=== PATIENT | male | born 1960 | race Caucasian/White ===

== ENCOUNTER 2017-08-19 11:26 | Emergency (ER) | payer SELFPAY ==
[~2017-08-19] VITALS: Ht 182.9 cm; Wt 132.0 kg
[~2017-08-19 11:26] MED LIST: CHOL100010 PO; DICL75TA2 PO; MULT-618 PO; NXM/40 PO; OXYC1TAB3 PO; PRLSR20 PO; SIMV20TA2 PO; TAMS0.4C38 PO; TRAM-10 PO
[2017-08-19 11:27] VITALS: TEMP 36.7; Ht 182.9 cm; Wt 132.0 kg
[2017-08-19] MEDS ORDERED: METOPROLOL TARTRATE 1 MG/ML VIAL IV STA (11:33)
[2017-08-19 11:34] VITALS: O2SAT 98
[2017-08-19 11:48] LABS: BASO % 0.3 %; BASO ABS # 0.02 K/uL (0-0.2); EOS % 3.1 %; HEMATOCRIT 48.1 % (42-52); HEMOGLOBIN 16.3 g/dL (14.0-18.0); IG# 0.02 K/uL (0.00-0.02); LYMPH % 25.5 %; LYMPH ABS # 1.65 K/uL (1.2-3.4); MEAN CELL VOLUME 81.7 fL (80-100); MEAN CORPUSCULAR HEMOGLOBIN 27.7 pg (25-34); MEAN CORPUSCULAR HGB CONC 33.9 g/dl (32-36); MEAN PLATELET VOLUME 10.7 fL (7.4-10.4); MONO % 6.3 %; MONO ABS # 0.41 K/uL (0.11-0.59); NEUT % 64.5 %; NEUT ABS # 4.18 K/uL (1.4-6.5); PLATELET COUNT 237 K/uL (130-400); RED CELL DISTRIBUTION WIDTH CV 15.6 % (11.5-14.5); RED CELL DISTRIBUTION WIDTH SD 46.8 fL (36.4-46.3); WHITE BLOOD COUNT 6.48 K/uL (4.8-10.8)
--- NOTE | 2017-08-19 11:55 | DIAGNOSTIC IMAGING REPORT ---
CHEST ONE VIEW PORTABLE CLINICAL HISTORY: Evaluate Fever/Sepsis COMPARISON STUDY: No previous studies for comparison. FINDINGS: Lung volumes are normal. There is no pneumothorax or pleural effusion. There is no evidence for pulmonary edema. Minimal left basilar opacity is suggestive of atelectasis. There is mild cardiomegaly without evidence for pulmonary edema. IMPRESSION: 1. No acute cardiopulmonary findings. 2. Mild cardiomegaly. Electronically signed by: Jn Armendariz M.D. 08/19/2017 11:54 AM Dictated Date/Time: 08/19/2017 11:53 AM
[2017-08-19 11:56] LABS: PTT PATIENT 25.7 SECONDS (21.0-31.0)
[2017-08-19] MEDS ORDERED: CHOL1000 PO (12:02)
[2017-08-19 12:04] LABS: BLOOD UREA NITROGEN 21 mg/dl (7-18); CARBON DIOXIDE 29 mmol/L (21-32); CREATININE 1.24 mg/dl (0.60-1.40); GLUCOSE 106 mg/dl (70-99); POTASSIUM 4.1 mmol/L (3.5-5.1); SODIUM 137 mmol/L (136-145)
[2017-08-19] MEDS ORDERED: ASPI325T39 PO (12:05)
[2017-08-19 12:14] LABS: CKMB 1.3 ng/ml (0.5-3.6)
--- NOTE | 2017-08-19 13:14 | EMERGENCY ROOM VISIT NOTE ---
History Report prepared by Cholo: Erica Forrest Under the Supervision of: Dr. Andres Olivo D.O. 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 He states he was walking outside and suddenly developed substernal chest pain, a fast right heart rate, arm pain and tingling, diaphoresis, jaw pain and shortness of breath. He rates his pain as a 5/10 in severity. He states he feels "hot and sweaty" currently in the ED, but his chest pain feels improved. 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 A total of 10 systems reviewed and were otherwise negative. Past Medical & Surgical Medical Problems: (1) Lumbar Disc Displacement (2) Rotator Cuff Rupture (3) Rt Bundle Branch Block (4) Unilat Inguinal Hernia (5) Unspecified Sleep Apnea Family History Hypertension Kidney disease Social History Smoking Status: Never Smoker Alcohol Use: none Drug Use: none Marital Status: Housing Status: lives with family Occupation Status: employed Current/Historical Medications Scheduled Aspirin (Aspirin Ec), 650 MG PO X1 Cholecalciferol (Vitamin D3), 2 TAB PO DAILY Diclofenac Sodium (Voltaren), 75 MG PO BID Multiple Vitamins W/ Minerals (Centrum Silver Ultra Mens), 1 TAB PO DAILY Omeprazole (Prilosec), 20 MG PO DAILY Simvastatin (Zocor), 20 MG PO QPM Tamsulosin Hcl (Flomax), 0.4 MG PO DAILY Scheduled PRN Oxycodone Ir (Roxicodone Ir), 1-2 TAB PO Q4H PRN for Severe Pain Tramadol (Ultram), 50 MG PO Q6 PRN for Pain Allergies Coded Allergies: No Known Allergies (Verified , 08/19/17) Physical Exam Vital Signs Date Time Temp Pulse Resp B/P (MAP) Pulse Ox O2 Delivery O2 Flow Rate FiO2 08/19/17 12:51 80 16 126/86 93 Nasal Cannula 2.0 08/19/17 11:53 85 16 126/86 95 Nasal Cannula 2.0 08/19/17 11:52 90 08/19/17 11:52 94 Room Air 08/19/17 11:51 175 08/19/17 11:43 96 139/93 08/19/17 11:34 98 Nasal Cannula 2.0 08/19/17 11:27 36.7 189 20 149/81 96 Physical Exam CONSTITUTIONAL/VITAL SIGNS: Reviewed / noted above. GENERAL: Non-toxic in appearance. INTEGUMENTARY: Warm, dry, and [place]. HEAD: Normocephalic. EYES: without scleral icterus or trauma. ENT/OROPHARYNX: clear and moist. LYMPHADENOPATHY/NECK: Is supple without lymphadenopathy or meningismus. RESPIRATORY: Lungs clear and equal. CARDIOVASCULAR: Tachycardic heart rate, regular rhythm. GI/ABDOMEN: Soft and nontender. No organomegaly or pulsatile mass. No rebound or guarding. Normal bowel sounds. EXTREMITIES: Warm and well perfused. BACK: No CVA tenderness. NEUROLOGICAL: Intact without focal deficits. PSYCHIATRIC: normal affect. MUSCULOSKELETAL: Normally developed with good muscle tone. Medical Decision & Procedures ER Provider Diagnostic Interpretation: Radiology results as stated below per my review and radiologist interpretation: CHEST ONE VIEW PORTABLE CLINICAL HISTORY: Evaluate Fever/Sepsis COMPARISON STUDY: No previous studies for comparison. FINDINGS: Lung volumes are normal. There is no pneumothorax or pleural effusion. There is no evidence for pulmonary edema. Minimal left basilar opacity is suggestive of atelectasis. There is mild cardiomegaly without evidence for pulmonary edema. IMPRESSION: 1. No acute cardiopulmonary findings. 2. Mild cardiomegaly. Electronically signed by: Jn Armendariz M.D. 08/19/2017 11:54 AM Laboratory Results 08/19/17 11:30 Red Blood Count 5.89, Mean Corpuscular Volume 81.7, Mean Corpuscular Hemoglobin 27.7, Mean Corpuscular Hemoglobin Concent 33.9, Mean Platelet Volume 10.7, Neutrophils (%) (Auto) 64.5, Lymphocytes (%) (Auto) 25.5, Monocytes (%) (Auto) 6.3, Eosinophils (%) (Auto) 3.1, Basophils (%) (Auto) 0.3, Neutrophils # (Auto) 4.18, Lymphocytes # (Auto) 1.65, Monocytes # (Auto) 0.41, Eosinophils # (Auto) 0.20, Basophils # (Auto) 0.02 08/19/17 11:30 Test 08/19/17 11:30 White Blood Count 6.48 K/uL (4.8-10.8) Red Blood Count 5.89 M/uL (4.7-6.1) Hemoglobin 16.3 g/dL (14.0-18.0) Hematocrit 48.1 % (42-52) Mean Corpuscular Volume 81.7 fL (80-100) Mean Corpuscular Hemoglobin 27.7 pg (25-34) Mean Corpuscular Hemoglobin Concent 33.9 g/dl (32-36) Platelet Count 237 K/uL (130-400) Mean Platelet Volume 10.7 fL (7.4-10.4) Neutrophils (%) (Auto) 64.5 % Lymphocytes (%) (Auto) 25.5 % Monocytes (%) (Auto) 6.3 % Eosinophils (%) (Auto) 3.1 % Basophils (%) (Auto) 0.3 % Neutrophils # (Auto) 4.18 K/uL (1.4-6.5) Lymphocytes # (Auto) 1.65 K/uL (1.2-3.4) Monocytes # (Auto) 0.41 K/uL (0.11-0.59) Eosinophils # (Auto) 0.20 K/uL (0-0.5) Basophils # (Auto) 0.02 K/uL (0-0.2) RDW Standard Deviation 46.8 fL (36.4-46.3) RDW Coefficient of Variation 15.6 % (11.5-14.5) Immature Granulocyte % (Auto) 0.3 % Immature Granulocyte # (Auto) 0.02 K/uL (0.00-0.02) Prothrombin Time 10.5 SECONDS (9.0-12.0) Prothromb Time International Ratio 1.0 (0.9-1.1) Activated Partial Thromboplast Time 25.7 SECONDS (21.0-31.0) Partial Thromboplastin Ratio 1.0 Anion Gap 5.0 mmol/L (3-11) Est Creatinine Clear Calc Drug Dose 92.4 ml/min Estimated GFR () 74.3 Estimated GFR (Non- 64.1 BUN/Creatinine Ratio 17.1 (10-20) Calcium Level 9.0 mg/dl (8.5-10.1) Total Creatine Kinase 156 U/L (39-308) Creatine Kinase MB 1.3 ng/ml (0.5-3.6) Creatine Kinase MB Ratio 0.8 (0-3.0) Troponin I < 0.015 ng/ml (0-0.045) Thyroid Stimulating Hormone (TSH) 1.310 uIu/ml (0.300-4.500) Laboratory results as stated above per my review. Medications Administered Medications (Trade) Dose Ordered Sig/Rudy Route Start Time Stop Time Status Last Admin Dose Admin Metoprolol Tartrate (Lopressor Iv) 5 mg NOW STAT IV 08/19/17 11:33 08/19/17 11:34 DC 08/19/17 11:43 5 MG ECG Per My Interpretation Indication: chest pain Rate (beats per minute): 170 Rhythm: SVT Findings: no ectopy, other (no ST elevations) Change: Patient's electrocardiogram interpreted by me. 2nd EKG on 08/19/17: Normal sinus rhythm, rate of 98, no ST elevations or depressions, no ectopy ED Course 1130: Previous medical records were reviewed. The patient was evaluated in room A11. A complete history and physical examination was performed. 1133: Lopressor 5 mg IV. 1220: I reevaluated the patient. He is resting comfortably. 1315: I reevaluated the patient. He is feeling well and resting comfortably. I discussed his results and discharge instructions and he verbalized complete understanding and agreement. Medical Decision the differential was considered includes acute myocardial infarction, acute coronary syndrome, myocarditis, pericarditis, pericardial effusions /tamponade, esophageal perforation, thoracic aortic dissection, pulmonary embolism, pneumonia, pneumothorax, pancreatitis, shingles, acute cholecystitis, perforated abdominal viscus. This is a 57-year-old male who presents to the ED with a chief complaint of palpitations and lightheadedness. The patient states that his symptoms started about 30 minutes prior to his arrival. The patient reports that his right arm and jaw were also bothering him. His initial evaluation revealed vital signs with a heart rate of 189. The patient's initial EKG revealed SVT. There is no ischemic changes. His blood work revealed normal CBC, complete metabolic panel and troponin. During the patient's initial evaluation, the patient spontaneously converted to a normal sinus rhythm. There is no ischemic changes on that EKG. The patient was told the results of this test. He was given 5 mg of IV Lopressor during his ED stay. Vital signs were normal at the time of disposition. Medication Reconcilliation Current Medication List: was personally reviewed by me Blood Pressure Screening Patient's blood pressure: Normal blood pressure Blood pressure disposition: Did not require urgent referral Impression Primary Impression: SVT (supraventricular tachycardia) Scribe Attestation The scribe's documentation has been prepared under my direction and personally reviewed by me in its entirety. I confirm that the note above accurately reflects all work, treatment, procedures, and medical decision making performed by me. Departure Information Dispostion Home / Self-Care Referrals Salvador Jordan M.D. (PCP) Brennen Patrick M.D. Patient Instructions My [facility], Treatment for Supraventricular Tachycardia SVT, Understanding Supraventricular Tachycardia SVT Additional Instructions Follow-up with Dr. Patrick from cardiology. Call on Monday for an appointment. Return for recurrence or new concerns.
[2017-08-19 13:29] VITALS: BP 117/89; PULSE 81; O2SAT 96
== END 2017-08-19 14:00 | disposition home or self-care (01) ==
LOC: C.EDB 11:27 → C.EDA 14:00
DX: I47.1 Supraventricular tachycardia (principal); Z79.82 Long term (current) use of aspirin; Z82.49 Family history of ischemic heart disease and other diseases of the circulatory system; Z84.1 Family history of disorders of kidney and ureter

== ENCOUNTER 2018-09-23 15:39 | Inpatient (IN) ==
[2018-09-23] MEDS ORDERED: ALBUT/IPRATROP 3MG/0.5MG NEB 3 ML VIAL ONE (15:55)
--- NOTE | 2018-09-23 16:10 | XRay Report ---
XR chest 1V portable CLINICAL HISTORY: SOB, popping L anterior chest COMPARISON STUDY: Chest radiograph September 17, 2018. Chest CT September 18, 2018. FINDINGS: Lung volumes are normal. There is no pneumothorax or pleural effusion. Cardiomegaly is agai n noted. Mediastinal contours are stable. No evidence for pulmonary edema. Appearance of the chest is unchanged. IMPRESSION: No acute cardiopulmonary findings. No change in appearance of the chest. Electronically signed by: Jn Armendariz M.D. 09/23/2018 4:09 PM
[2018-09-23] MEDS ORDERED: methylPREDNISolone 125 MG/2 ML VIAL IV STA (16:14)
[2018-09-23] MEDS ORDERED: ALBUT/IPRATROP 3MG/0.5MG NEB 3 ML VIAL NEB STA ×3 (16:14→19:00)
[2018-09-23 16:39] LABS: Basophils # (auto) 0.05 K/uL (0-0.2); Basophils % (auto) 0.4 %; Eosinophils # (auto) 1.95 K/uL (0-0.5); Eosinophils % (auto) 15.9 %; Hematocrit (blood only) 47.1 % (42-52); Hemoglobin 15.8 g/dL (14.0-18.0); Immature Granulocytes # (auto) 0.03 K/uL (0.00-0.02); Immature Granulocytes % (auto) 0.2 %; Lymphocytes # (auto) 1.76 K/uL (1.2-3.4); Lymphocytes % (auto) 14.3 %; Mean Corpuscular Hgb Conc 33.5 g/dL (32-36); Mean Corpuscular Volume 80.9 fL (80-100); Mean Platelet Volume 10.5 fL (7.4-10.4); Monocytes # (auto) 0.84 K/uL (0.11-0.59); Monocytes % (auto) 6.8 %; Neutrophils # (auto) 7.67 K/uL (1.4-6.5); Neutrophils % (auto) 62.4 %; Platelet Count 306 K/uL (130-400); RDW Coefficient of Variation 15.8 % (11.5-14.5); RDW Standard Deviation 47.3 fL (36.4-46.3); Red Blood Count 5.82 M/uL (4.7-6.1)
[2018-09-23 16:54] LABS: Alanine Aminotransferase 35 U/L (12-78); Albumin Level 3.7 gm/dl (3.4-5.0); Aspartate Aminotransferase 23 U/L (15-37); BUN Creatinine Ratio 13.2 (10-20); Bilirubin Direct 0.1 mg/dl (0-0.2); Blood Urea Nitrogen 14 mg/dl (7-18); Carbon Dioxide 27 mmol/L (21-32); Chloride 104 mmol/L (98-107); Est GFR (African American) 88.2; Est GFR (Non-African American) 76.1; Glucose 88 mg/dl (70-99); Potassium 3.8 mmol/L (3.5-5.1); Sodium 140 mmol/L (136-145)
[2018-09-23 16:59] LABS: Alkaline Phosphatase 90 U/L (45-117); Bilirubin,Total 0.5 mg/dl (0.2-1); NT Pro B Type Natriuretic Pept 12 pg/ml (0-900); Total Protein 8.3 gm/dl (6.4-8.2); Troponin I < 0.015 ng/ml (0-0.045)
[2018-09-23 17:05] LABS: Influenza A virus by PCR Neg for Influ A (Neg); Influenza B virus by PCR Neg for Influ B (Neg)
[2018-09-23 17:12] LABS: Base Excess VBG 1.4 mEq/L; Oxygen Saturation VBG 68.7 %; pH VBG 7.35 (7.36-7.41)
--- NOTE | 2018-09-23 18:17 | Ultrasound Report ---
RIGHT LOWER EXTREMITY VENOUS DOPPLER CLINICAL HISTORY: Shortness of breath. Chest pain. COMPARISON STUDY: No previous studies for comparison. TECHNIQUE: Sonography of the deep venous system of the right lower extremity was performed. Compress ion and augmentation were evaluated. FINDINGS: The right common femoral, superficial femoral and popliteal veins were compressible. Augme ntation was normal. Flow was shown within the deep calf vessels. IMPRESSION: No evidence of deep venous thrombus within the right lower extremity. Electronically signed by: Jn Armendariz M.D. 09/23/2018 6:16 PM
[2018-09-23] MEDS ORDERED: OPTIRAY 320 125ml IV PRN (18:51)
[2018-09-23] MEDS ORDERED: LORazepam 1 MG/2 ML VIAL IV STA (19:03)
[2018-09-23] MEDS ORDERED: HYDROCODONE/HOMATROPINE SYRUP 5MG/1.5MG 5ML UDP PO STA (19:03)
[2018-09-23] MEDS ORDERED: LORazepam 2 MG/4 ML VIAL ONE (19:03)
--- NOTE | 2018-09-23 19:15 | CT Scan Report ---
CT ANGIOGRAPHY OF THE CHEST, PULMONARY EMBOLUS PROTOCOL CLINICAL HISTORY: Severe shortness of breath. Evaluate for pulmonary embolus. COMPARISON STUDY: Chest CT September 18, 2018. Chest radiograph performed earlier today. TECHNIQUE: Following IV administration of 120 mL of Optiray-320, helical axial images of the chest we re obtained utilizing the pulmonary embolus protocol. Maximal intensity projections and sagittal and coronal reformats were viewed on an independent 3D workstation. IV contrast was administered withou t complication. Automated exposure control was utilized for the study. A dose lowering technique wa s utilized adhering to the principles of ALARA. CT DOSE: 680.21 mGy.cm FINDINGS: No pulmonary emboli are identified although the lobar, segmental and subsegmental pulmonar y arteries are suboptimally assessed due to respiratory motion. There is no pneumothorax or pleural e ffusion. There is no consolidation to suggest pneumonia. Minimal secretions within the distal trachea are noted. Note is made of mildly displaced fractures of the anterior left sixth and seventh costoch ondral junctions. A small amount of adjacent fluid is noted. There is no pneumothorax. Fatty infiltra tion of the liver is noted. IMPRESSION: 1. Mildly displaced fractures of the anterior left sixth and seventh costochondral junctions with sma ll amount of adjacent fluid. This accounts for the patient's pain. No pneumothorax. 2. No central pulmonary emboli identified. Remainder of the arteries suboptimally assessed due to res piratory motion. Electronically signed by: Jn Armendariz M.D. 09/23/2018 7:13 PM
--- NOTE | 2018-09-23 21:07 | History & Physical Report ---
Date of Service September 23, 2018 Assessment & Plan (1) Hypoxia: O2 sats as low as 88% in ED, even after O2 administered. CTA chest negative for pulmonary embolism; no infiltrates or effusions noted. Hypoxia probably secondary to sinobronchitis with associated bronchospasm. Rx bronchospasm with IV methylprednisolone and nebs. No history of COPD or asthma. Consider PFT's once acute symptoms have resolved. (2) Cough: Persistent cough x 3 weeks as outlined in HPI. Daughter's boyfriend had similar symptoms. Has received 2 courses of antibiotics as well as steroid taper. Associated sinus symptoms. No pulmonary infiltrates on chest x-ray or CTA chest. Check sinus films. No clear need for additional antibiotics at this time. Management of bronchospasm with IV steroids + nebs. Anti-tussives PRN. EMPLOYMENT COORDINATOR swab for influenza neg. Check EMPLOYMENT COORDINATOR swab for Pertussis. (3) Sleep apnea, obstructive: Continue CPAP. (4) Rib fractures: Fractures of left 6th and 7th ribs noted on CTA chest. Rib fractures secondary to coughing. Analgesics PRN. Incentive spirometry. Check vitamin D levels. (5) Prolonged QT interval: QTc 503 msec. Avoid QT-prolonging meds if possible. (6) Diarrhea: Patient reports frequent loose stools- at least 3 today. Has been on 2 recent courses of antibiotics. Check stool for C diff. (7) Hematochezia: Intermittent rectal bleeding which patient attributes to hemorrhoids. Last colonoscopy was 3 years ago- polyp, diverticulosis, internal hemorrhoids. Check stools for C diff. Repeat colonoscopy recommended in 5 yrs; may need f/u colonoscopy sooner if hematochezia persists. (8) GERD (gastroesophageal reflux disease): Continue PPI. (9) Benign prostatic hyperplasia: Continue tamsulosin. (10) DVT prophylaxis: Not indicated- very low risk < 1.5%) of VTE per IMPROVE model. Ambulate. (11) Discharge planning issues: Anticipated discharge to home. Family Medicine follow-up with Dr. Jordan. History of Present Illness Chief Complaint: cough, SOB, chest pain Primary Care Provider: Salvador Jordan 58-year-old male followed by Dr. Jordan. He enjoys relatively good health. History of sleep apnea, no other diagnosed pulmonary disease. About 3 weeks prior to admission he developed a cough. His daughter's boyfriend had similar symptoms and had to be hospitalized for several days. Cough became productive of yellow-green sputum. He was seen in the ED on 08/27/18. Chest x-ray did not show any infiltrates. He was thought to have bronchitis and was prescribed azithromycin and prednisone. Continue to have intermittent coughing. Temperature at home was as high as 102. Had at least one episode of nausea and vomiting. Developed left anterior chest wall pain after feeling a pop in his ribs after a coughing spell. Noted sinus congestion and postnasal drainage. Seen in clinic on 09/13/18 and prescribed amoxicillin/clavulanic acid, methylprednisolone taper, and nebulizer treatments with albuterol and ipratropium. He completed his course of methylprednisolone several days ago and his amoxicillin/clavulanic acid yesterday. Sinus symptoms have improved. Still experiencing wheezing, shortness of breath, and severe paroxysms of coughing. Nebulizer treatments offered temporary relief of wheezing and dyspnea. Using [id number] cough medications PRN. Cough still productive of thick green sputum. Ongoing severe left anterior chest wall pain; no anginal symptoms. Using diclofenac and ibuprofen chest wall pain without much benefit. Having frequent loose stools; has had intermittent rectal bleeding which he attributes to hemorrhoids. Came to the ED for evaluation. Oxygen saturations as low as 88%. BiPAP utilized for ventilatory support. Allergies Allergy/AdvReac Type Severity Reaction Status Date / Time No Known Allergies Allergy Unknown Verified 09/18/18 00:27 Home Medications Home Medications Medication Instructions Recorded Confirmed Type albuterol sulfate 2 puff INHALATION Q4 PRN 08/27/18 09/23/18 History diclofenac sodium 75 mg PO BID 08/27/18 09/23/18 History omeprazole 20 mg PO DAILY 08/27/18 09/23/18 History simvastatin 20 mg PO HS 08/27/18 09/23/18 History benzonatate 200 mg PO TID #30 cap 09/18/18 09/23/18 Rx aspirin 81 mg PO DAILY 09/23/18 09/23/18 History cholecalciferol (vitamin D3) 2,000 unit PO DAILY 09/23/18 09/23/18 History [Vitamin D3] dextromethorphan-guaifenesin 2 tab PO Q12H PRN 09/23/18 09/23/18 History [Mucinex DM] ipratropium-albuterol 3 ml INHALATION QID PRN 09/23/18 09/23/18 History tamsulosin 0.4 mg PO DAILY 09/23/18 09/23/18 History Past Med/Surg History Medical History Chronic back pain (Chronic) GERD (gastroesophageal reflux disease) (Chronic) Benign prostatic hyperplasia (Chronic) CPAP use counseling (Chronic) HLD (hyperlipidemia) (Chronic) Surgical History Status post tonsillectomy (Chronic) Status post hernia repair (Chronic) Status post cholecystectomy (Chronic) Status post appendectomy (Chronic) Family History Mother Stroke Coronary heart disease Father Kidney disease Sister Colorectal cancer Brother Colorectal cancer Brother Pancreatic cancer Brother Prostate cancer Social History Preferred Language: Hungarian Communication Ability: Effective 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 Beliefs That Will Affect Care: Restorationism Current Living Situation: Spouse Other Information That Helps Us Care for You: No Feels Safe at Home: Yes Safety Concerns: Feels Safe At This Time Smoking Status: Never smoker Hx Alcohol Use: Yes Hx Substance Use: No Review of Systems Constitutional: + fever and + weight loss (during recent illness) Eyes: no diplopia and no worsening vision Ear, Nose, Mouth, Throat: as per Subjective / HPI Respiratory: as per Subjective / HPI Gastrointestinal: + nausea, + vomiting, + diarrhea/loose stools and + blood in stools; no constipation and no melena Genitourinary (Male): + nocturia; no dysuria and no hematuria Musculoskeletal: + joint pain (chronic back pain); no myalgia Integumentary: no rash and no new lesions Neurologic: no headache(s) Endocrine: + polydipsia Hematologic / Lymphatic: no easy bleeding, no easy bruising and no lymphadenopathy Physical Exam Vital Signs (Past 24 Hours): Last Vital Signs Temp 36.8 C 09/23/18 15:41 Pulse 112 H 09/23/18 21:01 Resp 21 09/23/18 21:01 BP 124/98 09/23/18 21:00 Pulse Ox 92 09/23/18 21:01 Constitutional: WD/WN, vitals as above no acute distress (appears very uncomfortable when coughing) Eyes: PERRL, conjunctivae normal, anicteric sclerae ENMT: external ear and nose normal, oropharynx normal Neck: trachea midline, no thyromegaly Respiratory: no respiratory distress Auscultation: + wheezes (diffuse, moderate) Cardiovascular: Rate/Rhythm: regular rate Heart Sounds: no gallop, no murmur and no cardiac rub Vessels: no JVD Extremities: normal capillary refill and + edema (trace pretibial); no calf tenderness Chest (Breasts): Additional Comments: left anterior chest wall tenderness Gastrointestinal (Abdomen): normal bowel sounds, soft, nontender, no hepatosplenomegaly Musculoskeletal: Head/Neck/Chest: neck supple Extremities: strength 5/5 throughout; no cyanosis and no clubbing Skin: no rashes, warm and dry Neurologic: PERRL, EOMI no facial palsy no dysarthria or aphasia patellar DTR's 1/2 bilat Psychiatric: Orientation: alert and oriented x 3 Affect: euthymic affect Lymphatic: no cervical lymphadenopathy Results & Data Laboratory Results Laboratory Results - last 24 hr 09/23/18 09/23/18 09/23/18 15:51 15:51 16:26 WBC 12.30 H RBC 5.82 Hgb 15.8 Hct 47.1 MCV 80.9 MCH 27.1 MCHC 33.5 RDW Std Deviation 47.3 H RDW Coeff of Kristi 15.8 H Plt Count 306 MPV 10.5 H Immature Gran % (Auto) 0.2 Neut % (Auto) 62.4 Lymph % (Auto) 14.3 [place] % (Auto) 6.8 Eos % (Auto) 15.9 Baso % (Auto) 0.4 Immature Gran # (Auto) 0.03 H Neut # (Auto) 7.67 H Lymph # (Auto) 1.76 [place] # (Auto) 0.84 H Eos # (Auto) 1.95 H Baso # (Auto) 0.05 VBG pH VBG pCO2 VBG pO2 VBG HCO3 VBG O2 Saturation VBG Base Excess Carboxyhemoglobin Barometric Pressure Sodium 140 Potassium 3.8 Chloride 104 Carbon Dioxide 27 Anion Gap 9.0 BUN 14 Creatinine 1.07 Est Cr Clr Drug Dosing Not Reportable Est GFR ( Amer) 88.2 Est GFR (Non-Af Amer) 76.1 BUN/Creatinine Ratio 13.2 Glucose 88 Lactate Calcium 9.0 Total Bilirubin 0.5 Direct Bilirubin 0.1 AST 23 ALT 35 Alkaline Phosphatase 90 Troponin I < 0.015 NT-Pro-B Natriuret Pep 12 Total Protein 8.3 H Albumin 3.7 Lipase 91 Influenza Type A (PCR) Neg for Influ A Influenza Type B (PCR) Neg for Influ B 09/23/18 09/23/18 09/23/18 16:42 16:42 16:42 WBC RBC Hgb Hct MCV MCH MCHC RDW Std Deviation RDW Coeff of Kristi Plt Count MPV Immature Gran % (Auto) Neut % (Auto) Lymph % (Auto) [place] % (Auto) Eos % (Auto) Baso % (Auto) Immature Gran # (Auto) Neut # (Auto) Lymph # (Auto) [place] # (Auto) Eos # (Auto) Baso # (Auto) VBG pH 7.35 L VBG pCO2 52 H VBG pO2 37 VBG HCO3 28 VBG O2 Saturation 68.7 VBG Base Excess 1.4 Carboxyhemoglobin 0.0 Barometric Pressure 730.2 Sodium Potassium Chloride Carbon Dioxide Anion Gap BUN Creatinine Est Cr Clr Drug Dosing Est GFR ( Amer) Est GFR (Non-Af Amer) BUN/Creatinine Ratio Glucose Lactate 1.0 Calcium Total Bilirubin Direct Bilirubin AST ALT Alkaline Phosphatase Troponin I NT-Pro-B Natriuret Pep Total Protein Albumin Lipase Influenza Type A (PCR) Influenza Type B (PCR) Diagnostic Findings PORT CHEST X-RAY IMPRESSION: No acute cardiopulmonary findings. No change in appearance of the chest. Electronically signed by: Jn Armendariz M.D. 09/23/2018 4:09 PM CTA CHEST FINDINGS: No pulmonary emboli are identified although the lobar, segmental and subsegmental pulmonary arteries are suboptimally assessed due to respiratory motion. There is no pneumothorax or pleural effusion. There is no consolidation to suggest pneumonia. Minimal secretions within the distal trachea are noted. Note is made of mildly displaced fractures of the anterior left sixth and seventh costochondral junctions. A small amount of adjacent fluid is noted. There is no pneumothorax. Fatty infiltration of the liver is noted. IMPRESSION: 1. Mildly displaced fractures of the anterior left sixth and seventh costochondral junctions with small amount of adjacent fluid. This accounts for the patient's pain. No pneumothorax. 2. No central pulmonary emboli identified. Remainder of the arteries suboptimally assessed due to respiratory motion. Electronically signed by: Jn Armendariz M.D. 09/23/2018 7:13 PM VENOUS DUPLEX RIGHT LOWER EXTREMITY IMPRESSION: No evidence of deep venous thrombus within the right lower extremity. Electronically signed by: Jn Armendariz M.D. 09/23/2018 6:16 PM ECG Additional Comments: EKG performed at [address] at 110 / min, QTc 503 msec, no acute ST or T-wave changes. Code Status & VTE Plan Code Status full code VTE Prophylaxis Plan VTE Prophylaxis will be ordered: No Reason for no VTE drug order: Treatment not indicated Reason for no VTE mechanical prophylaxis: Treatment not tolerated
[2018-09-23] MEDS ORDERED: HYDROCODONE/HOMATROPINE SYRUP 5MG/1.5MG 5ML UDP PO PRN (22:02)
[2018-09-23] MEDS ORDERED: ACETAMINOPHEN 500 MG TAB PO PRN (22:03)
[2018-09-23] MEDS ORDERED: TRAMADOL HCL 50 MG TABLET PO PRN (22:04)
[2018-09-23] MEDS: DICLOFENAC SODIUM 75 MG TABCR PO SCH (23:33)
[2018-09-23] MEDS: BENZONATATE 100 MG CAPSULE PO PRN (23:34)
--- NOTE | 2018-09-24 00:15 | Emergency Department Note ---
Entered by Mike Samaniego acting as a scribe for Peter Morrison History of Present Illness General Chief complaint: Chest Pain Stated complaint: CAN'T BREATH, CHEST PAIN Time Seen by Provider: 09/23/18 16:04 Source: patient Mode of arrival: ambulatory History of Present Illness Provider complaint: Chest Pain Onset (ago): week(s) 3 Location: chest Pain Consistency: + constant Maximum Pain Intensity: 10 Current Pain Intensity: 10 Quality: + other (Chest Pain ) Associated symptoms: + cough; no nausea/vomiting Treatments prior to arrival: other ( albuterol) Patient is a 58 year old male who presents himself to the ER with complains of chest pain beginning three weeks ago. Patient states about 10 days ago he noticed something popping in his chest. That day he came into the ER around midnight and was told he had torn a muscle and said the pain was unbelievably painful. After the patient was discharged he went to see a doctor and was given antibiotics and steroids. Patient then reports seeing who gave him amoxicillin and albuterol. Patient state he ran out of some of his medication and has been coughing immensely for last two to three days. He is in the ER today regarding his chest pain again. He notes his pain to be specifically in the center of the chest. He rates his constant pain at a value of 7 on the pain intensity scale. He states he was up all night and took albuterol medication to relieve his symptoms, but it did not provide him relief. Patient also notes having pain radiating to the inside of his knee. Patient denies nausea and vomiting. Home Medications Home Medications Medication Instructions Recorded Confirmed Type albuterol sulfate 2 puff INHALATION Q4 PRN 08/27/18 09/23/18 History diclofenac sodium 75 mg PO BID 08/27/18 09/23/18 History omeprazole 20 mg PO DAILY 08/27/18 09/23/18 History simvastatin 20 mg PO HS 08/27/18 09/23/18 History benzonatate 200 mg PO TID #30 cap 09/18/18 09/23/18 Rx aspirin 81 mg PO DAILY 09/23/18 09/23/18 History cholecalciferol (vitamin D3) 2,000 unit PO DAILY 09/23/18 09/23/18 History [Vitamin D3] dextromethorphan-guaifenesin 2 tab PO Q12H PRN 09/23/18 09/23/18 History [Mucinex DM] ipratropium-albuterol 3 ml INHALATION QID PRN 09/23/18 09/23/18 History tamsulosin 0.4 mg PO DAILY 09/23/18 09/23/18 History Allergies Allergy/AdvReac Type Severity Reaction Status Date / Time No Known Allergies Allergy Unknown Verified 09/18/18 00:27 Past Med/Surg History Medical History Chronic back pain (Chronic) GERD (gastroesophageal reflux disease) (Chronic) Benign prostatic hyperplasia (Chronic) CPAP use counseling (Chronic) HLD (hyperlipidemia) (Chronic) Surgical History Status post tonsillectomy (Chronic) Status post hernia repair (Chronic) Status post cholecystectomy (Chronic) Status post appendectomy (Chronic) Family History Mother Stroke Coronary heart disease Father Kidney disease Sister Colorectal cancer Brother Colorectal cancer Brother Pancreatic cancer Brother Prostate cancer Social History Preferred Language: Nepali Communication Ability: Effective Keyboard Specialist Required: No Beliefs That Will Affect Care: Jewish Current Living Situation: Spouse Other Information That Helps Us Care for You: No Feels Safe at Home: Yes Safety Concerns: Feels Safe At This Time Smoking Status: Never smoker Hx Alcohol Use: Yes Hx Substance Use: No Review of Systems See HPI for pertinent positives & negatives. and A total of 10 systems reviewed and were otherwise negative Physical Exam Vital Signs Vital Signs - 24 hr 09/23/18 15:41 09/23/18 15:49 09/23/18 15:51 Temperature 36.8 C Temperature Source Oral Sepsis Recent Fever Within 48 Hours No Sepsis Action Taken by Nursing No Action Required Pulse Rate 114 H 102 H Pulse Rate [Finger] 102 H Pulse Rate from SpO2 Sensor 103 H Pulse Rhythm [Finger] Pulse Strength [Finger] Respiratory Rate 28 H 27 H 24 Respiratory Effort / Characteristics Spontaneous Labored Respiratory Depth Normal Respiratory Pattern Blood Pressure 188/99 H 165/97 H Blood Pressure [Right Arm] 165/97 H Blood Pressure Mean 128 119 Blood Pressure Mean [Right Arm] 119 Blood Pressure Position [Right Arm] Pulse Oximetry 88 L 96 93 Oxygen Delivery Method Nasal Cannula Oxygen Flow Rate 2 Fraction of Inspired Oxygen 09/23/18 15:53 09/23/18 16:00 09/23/18 16:01 Temperature Temperature Source Sepsis Recent Fever Within 48 Hours Sepsis Action Taken by Nursing Pulse Rate 102 H 100 H 101 H Pulse Rate [Finger] Pulse Rate from SpO2 Sensor 102 H 100 H 101 H Pulse Rhythm [Finger] Pulse Strength [Finger] Respiratory Rate 21 26 H 37 H Respiratory Effort / Characteristics Respiratory Depth Respiratory Pattern Blood Pressure 145/88 H Blood Pressure [Right Arm] Blood Pressure Mean 107 Blood Pressure Mean [Right Arm] Blood Pressure Position [Right Arm] Pulse Oximetry 93 97 97 Oxygen Delivery Method Oxygen Flow Rate Fraction of Inspired Oxygen 09/23/18 16:30 09/23/18 16:31 09/23/18 17:00 Temperature Temperature Source Sepsis Recent Fever Within 48 Hours Sepsis Action Taken by Nursing Pulse Rate 97 H 99 H 110 H Pulse Rate [Finger] Pulse Rate from SpO2 Sensor 98 H 100 H 110 H Pulse Rhythm [Finger] Pulse Strength [Finger] Respiratory Rate 28 H 27 H 29 H Respiratory Effort / Characteristics Respiratory Depth Respiratory Pattern Blood Pressure 157/74 H 172/98 H Blood Pressure [Right Arm] Blood Pressure Mean 101 122 Blood Pressure Mean [Right Arm] Blood Pressure Position [Right Arm] Pulse Oximetry 97 96 92 Oxygen Delivery Method Oxygen Flow Rate Fraction of Inspired Oxygen 09/23/18 17:35 09/23/18 17:36 09/23/18 18:27 Temperature Temperature Source Sepsis Recent Fever Within 48 Hours Sepsis Action Taken by Nursing Pulse Rate 120 H 115 H 111 H Pulse Rate [Finger] Pulse Rate from SpO2 Sensor 119 H 114 H Pulse Rhythm [Finger] Pulse Strength [Finger] Respiratory Rate 18 27 H 10 L Respiratory Effort / Characteristics Respiratory Depth Respiratory Pattern Blood Pressure 154/94 H Blood Pressure [Right Arm] Blood Pressure Mean 114 Blood Pressure Mean [Right Arm] Blood Pressure Position [Right Arm] Pulse Oximetry 91 93 Oxygen Delivery Method Oxygen Flow Rate Fraction of Inspired Oxygen 09/23/18 18:29 09/23/18 18:30 09/23/18 18:31 Temperature Temperature Source Sepsis Recent Fever Within 48 Hours Sepsis Action Taken by Nursing Pulse Rate 111 H 112 H Pulse Rate [Finger] 111 H Pulse Rate from SpO2 Sensor 111 H 111 H Pulse Rhythm [Finger] Regular Pulse Strength [Finger] Normal Respiratory Rate 30 H 28 H 31 H Respiratory Effort / Characteristics Spontaneous Accessory Muscle Use Labored Retracting Short of Breath Respiratory Depth Deep Respiratory Pattern Tachypnea Blood Pressure 150/90 H Blood Pressure [Right Arm] 150/90 H Blood Pressure Mean 110 Blood Pressure Mean [Right Arm] 110 Blood Pressure Position [Right Arm] Sitting Pulse Oximetry 88 L 89 L 90 Oxygen Delivery Method Nasal Cannula Oxygen Flow Rate 3 Fraction of Inspired Oxygen 09/23/18 18:36 09/23/18 19:00 09/23/18 19:03 Temperature Temperature Source Sepsis Recent Fever Within 48 Hours Sepsis Action Taken by Nursing Pulse Rate 121 H 133 H Pulse Rate [Finger] Pulse Rate from SpO2 Sensor 131 H Pulse Rhythm [Finger] Pulse Strength [Finger] Respiratory Rate 24 33 H Respiratory Effort / Characteristics Respiratory Depth Respiratory Pattern Blood Pressure 153/93 H Blood Pressure [Right Arm] Blood Pressure Mean 113 Blood Pressure Mean [Right Arm] Blood Pressure Position [Right Arm] Pulse Oximetry 88 L 93 Oxygen Delivery Method Nasal Cannula Oxygen Flow Rate 3 Fraction of Inspired Oxygen 09/23/18 19:06 09/23/18 19:23 09/23/18 19:30 Temperature Temperature Source Sepsis Recent Fever Within 48 Hours Sepsis Action Taken by Nursing Pulse Rate 120 H 117 H Pulse Rate [Finger] 118 H Pulse Rate from SpO2 Sensor 122 H Pulse Rhythm [Finger] Pulse Strength [Finger] Respiratory Rate 22 25 H 25 H Respiratory Effort / Characteristics Non-Labored Spontaneous Spontaneous Respiratory Depth Respiratory Pattern Blood Pressure 133/90 Blood Pressure [Right Arm] Blood Pressure Mean 104 Blood Pressure Mean [Right Arm] Blood Pressure Position [Right Arm] Pulse Oximetry 90 95 93 Oxygen Delivery Method Nasal Cannula Oxygen Flow Rate 6 Fraction of Inspired Oxygen 50 09/23/18 19:31 09/23/18 19:58 09/23/18 20:00 Temperature Temperature Source Sepsis Recent Fever Within 48 Hours Sepsis Action Taken by Nursing Pulse Rate 117 H 113 H 109 H Pulse Rate [Finger] Pulse Rate from SpO2 Sensor 117 H 114 H 110 H Pulse Rhythm [Finger] Pulse Strength [Finger] Respiratory Rate 20 29 H 20 Respiratory Effort / Characteristics Respiratory Depth Respiratory Pattern Blood Pressure 133/90 164/88 H Blood Pressure [Right Arm] Blood Pressure Mean 104 113 Blood Pressure Mean [Right Arm] Blood Pressure Position [Right Arm] Pulse Oximetry 96 97 95 Oxygen Delivery Method BiPAP BiPAP Oxygen Flow Rate Fraction of Inspired Oxygen 09/23/18 20:01 09/23/18 20:30 09/23/18 20:31 Temperature Temperature Source Sepsis Recent Fever Within 48 Hours Sepsis Action Taken by Nursing Pulse Rate 110 H 110 H 111 H Pulse Rate [Finger] Pulse Rate from SpO2 Sensor 111 H 107 H 109 H Pulse Rhythm [Finger] Pulse Strength [Finger] Respiratory Rate 26 H 25 H 22 Respiratory Effort / Characteristics Respiratory Depth Respiratory Pattern Blood Pressure 131/85 Blood Pressure [Right Arm] Blood Pressure Mean 100 Blood Pressure Mean [Right Arm] Blood Pressure Position [Right Arm] Pulse Oximetry 96 92 97 Oxygen Delivery Method BiPAP Oxygen Flow Rate Fraction of Inspired Oxygen 09/23/18 20:32 09/23/18 21:00 09/23/18 21:01 Temperature Temperature Source Sepsis Recent Fever Within 48 Hours Sepsis Action Taken by Nursing Pulse Rate 112 H 113 H 112 H Pulse Rate [Finger] Pulse Rate from SpO2 Sensor 111 H 113 H 112 H Pulse Rhythm [Finger] Pulse Strength [Finger] Respiratory Rate 25 H 18 21 Respiratory Effort / Characteristics Respiratory Depth Respiratory Pattern Blood Pressure 124/98 Blood Pressure [Right Arm] Blood Pressure Mean 106 Blood Pressure Mean [Right Arm] Blood Pressure Position [Right Arm] Pulse Oximetry 97 91 92 Oxygen Delivery Method Oxygen Flow Rate Fraction of Inspired Oxygen 09/23/18 22:15 09/23/18 22:42 09/23/18 23:52 Temperature 36.3 C L 36.3 C L Temperature Source Oral Oral Sepsis Recent Fever Within 48 Hours Sepsis Action Taken by Nursing Pulse Rate 105 H Pulse Rate [Finger] 107 H 101 H Pulse Rate from SpO2 Sensor Pulse Rhythm [Finger] Pulse Strength [Finger] Respiratory Rate 24 24 20 Respiratory Effort / Characteristics Non-Labored Spontaneous Short of Breath Respiratory Depth Normal Shallow Respiratory Pattern Regular Blood Pressure Blood Pressure [Right Arm] 147/80 H 138/74 Blood Pressure Mean Blood Pressure Mean [Right Arm] 102 95 Blood Pressure Position [Right Arm] Pulse Oximetry 98 92 92 Oxygen Delivery Method Nasal Cannula BiPAP Oxygen Flow Rate 4 5 Fraction of Inspired Oxygen 50 GENERAL: He is oriented to person, place, and time. He appears well-developed and well-nourished. He does not appear distressed. HENT: Exam performed. - Head: Normocephalic and atraumatic. - Right Ear: External ear normal. No mastoid tenderness. - Left Ear: External ear normal. No mastoid tenderness. - Mouth/Throat: The oropharynx is clear and moist. No trismus in the jaw. No dental abscesses or uvula swelling. No oropharyngeal exudate or tonsillar abscesses. EYES: Conjunctivae and EOM are normal. Pupils are equal, round, and reactive to light. Right eye exhibits no discharge. Left eye exhibits no discharge. No scleral icterus. NECK: Normal range of motion. Neck supple. No JVD present. No spinous process tenderness present. No carotid bruit present. No rigidity. No tracheal deviation and normal range of motion present. No Brudzinski's sign and no Kernig's sign noted. CV: Tachycardic rate, Normal rhythm, normal heart sounds and intact distal pulses. There is no peripheral edema. Palpable radial pulses bue. PULM/CHEST: Patient is tachypneic. Diffused expiratory wheezes bilaterally . He has no rales. - Chest Wall: Pain on palpation of the left anterior chest. No crepitus. ABD: The abdomen is soft. Bowel sounds are normal. He has no distension. No mass is present. There is no tenderness. There is no rebound, no guarding, no Kelley's sign and no tenderness at McBurney's point. Rovsig negative. MUSC/SKEL: Normal range of motion. There is no peripheral edema, tenderness or deformity. LYMPH: No cervical adenopathy. NEURO: He is alert and oriented to person, place, and time. He has normal strength. No cranial nerve deficit or sensory deficit. Coordination and gait normal. GCS eye subscore is 4. GCS verbal subscore is 5. GCS motor subscore is 6. Cerebellar tests wnl. SKIN: Skin is warm and dry. He is not diaphoretic. PSYCH: He has a normal mood and affect. Behavior is normal. Judgment and thought content normal. Course 1607: I reviewed the patients EMR. This is the patients 3rd visit in the last 30 days for chest pain and shortness of breath related symptoms. The patient was last seen August 27, 2018. He had blood work and chest x-ray done during that visit. The chest X-ray was negative and troponin was also negative. The patient was discharged with zithromax and prednisone. The patient was next seen September 18, 2018. From that visit his white count was 13 and his troponin was negative. He also had a CTA chest which revealed no PE or pneumonia. The patient was evaluated in room A03, and a complete history and physical examination were performed. 1620: I performed a bedside ultrasound. The bedside ultrasound revealed very small trace pericardial effusion and no cardiac tamponade was noticed. 184: Labs showed increased leukocytosis 12.3. While patient was at ultra sound he became techypnic and under extreme respiratory distress. He was 90% on 4L . Per the nursing staff, the patient became cyanotic. He was started on BPAP and will be taken for a CTA of the chest. 1905: The patient is coughing uncontrollably and gasping for air. These spells last 30 seconds to 2 minutes each. Patient notes his daughters boyfriend was admitted to the hospital for 5 days for unknown illness. He notes he has been feeling ill since having his last encounter with daughters boyfriend. 0: Patient is tolerated BiPAP well. The patients CTA of chest revealed no PE or pneumonia, but did reveal two rib fractures. Patient will be admitted under the care of Paul Amador. Patient has verbalized agreement to the treatment plan. I spoke with Dr. Nika Miller regarding the case. He will a dmit the patient under his care for further treatment. The patient has verbalized agreement to the treatment plan. Consultations Consultation #1: Paul Amador. Time: 19:30 Administered Medications Benzonatate (Tessalon Perle) 200 mg PO TID PRN PRN Reason: Cough Stop: 10/24/18 08:59 Last Admin: 09/23/18 23:34 Dose: 200 mg Documented by: [id number] Diclofenac Sodium (Voltaren) 75 mg PO BID [facility] Stop: 10/23/18 21:59 Last Admin: 09/23/18 23:33 Dose: 75 mg Documented by: [id number] Ioversol (Optiray 320 125ml) 120 ml IV ONCE PRN PRN Reason: Interaction Checking Stop: 09/27/18 18:50 Last Admin: 09/23/18 18:51 Dose: 120 ml Documented by: [id number] Miscellaneous (Remove Lidoderm Patch) 1 ea N/A DAILY@2100 [facility] Stop: 10/23/18 20:59 Last Admin: 09/23/18 23:34 Dose: Not Given Documented by: [id number] Discontinued Medications Albuterol (Duoneb) Confirm Administered Dose 3 ml .ROUTE .STK-MED ONE Stop: 09/23/18 15:56 Last Admin: 09/23/18 16:00 Dose: 3 ml Documented by: [id number] Albuterol (Duoneb) 3 ml NEB NOW STA Stop: 09/23/18 16:15 Last Admin: 09/23/18 16:27 Dose: 3 ml Documented by: [id number] Albuterol (Duoneb) 3 ml NEB NOW STA Stop: 09/23/18 16:22 Last Admin: 09/23/18 16:27 Dose: 3 ml Documented by: [id number] Albuterol (Duoneb) 3 ml NEB NOW STA Stop: 09/23/18 19:01 Last Admin: 09/23/18 19:06 Dose: 3 ml Documented by: [id number] Hydrocodone Bit/Homatropine Methylb (Hycodan) 5 ml PO NOW STA Stop: 09/23/18 19:04 Last Admin: 09/23/18 19:10 Dose: 5 ml Documented by: [id number] Lorazepam (Ativan) 1 mg in 2 mls @ 2 mls/min IV NOW STA Stop: 09/23/18 19:04 Last Admin: 09/23/18 19:10 Dose: 2 mls/min Documented by: [id number] Lorazepam (Ativan) Confirm Administered Dose 2 mg .ROUTE .STK-MED ONE Stop: 09/23/18 19:04 Last Admin: 09/23/18 19:10 Dose: Not Given Documented by: [id number] Methylprednisolone (Solumedrol) 125 mg IV NOW STA Stop: 09/23/18 16:15 Last Admin: 09/23/18 16:27 Dose: 125 mg Documented by: [id number] Medical Decision Making Medical Records Attestation: I reviewed the patient's medical records. Home Medications Current Medication List: was personally reviewed by me Laboratory Data Attestation: I reviewed the patient's lab results. Result diagrams: 09/23/18 15:51 09/23/18 15:51 Lab Results 09/23/18 09/23/18 09/23/18 Range/Units 15:51 15:51 16:26 WBC 12.30 H (4.8-10.8) K/uL RBC 5.82 (4.7-6.1) M/uL Hgb 15.8 (14.0-18.0) g/dL Hct 47.1 (42-52) % MCV 80.9 (80-100) fL MCH 27.1 (25-34) pg MCHC 33.5 (32-36) g/dL RDW Std Deviation 47.3 H (36.4-46.3) fL RDW Coeff of Kristi 15.8 H (11.5-14.5) % Plt Count 306 (130-400) K/uL MPV 10.5 H (7.4-10.4) fL Immature Gran % (Auto) 0.2 % Neut % (Auto) 62.4 % Lymph % (Auto) 14.3 % [place] % (Auto) 6.8 % Eos % (Auto) 15.9 % Baso % (Auto) 0.4 % Immature Gran # (Auto) 0.03 H (0.00-0.02) K/uL Neut # (Auto) 7.67 H (1.4-6.5) K/uL Lymph # (Auto) 1.76 (1.2-3.4) K/uL [place] # (Auto) 0.84 H (0.11-0.59) K/uL Eos # (Auto) 1.95 H (0-0.5) K/uL Baso # (Auto) 0.05 (0-0.2) K/uL VBG pH (7.36-7.41) VBG pCO2 (38-50) mmHg VBG pO2 mmHg VBG HCO3 mmol/L VBG O2 Saturation % VBG Base Excess mEq/L Carboxyhemoglobin % THgb Barometric Pressure mm/Hg Sodium 140 (136-145) mmol/L Potassium 3.8 (3.5-5.1) mmol/L Chloride 104 (98-107) mmol/L Carbon Dioxide 27 (21-32) mmol/L Anion Gap 9.0 (3-11) BUN 14 (7-18) mg/dl Creatinine 1.07 (0.6-1.4) mg/dl Est Cr Clr Drug Dosing Not Reportable Est GFR ( Amer) 88.2 Est GFR (Non-Af Amer) 76.1 BUN/Creatinine Ratio 13.2 (10-20) Glucose 88 (70-99) mg/dl Lactate (0.4-2.0) mmol/L Calcium 9.0 (8.5-10.1) mg/dl Total Bilirubin 0.5 (0.2-1) mg/dl Direct Bilirubin 0.1 (0-0.2) mg/dl AST 23 (15-37) U/L ALT 35 (12-78) U/L Alkaline Phosphatase 90 (45-117) U/L Troponin I < 0.015 (0-0.045) ng/ml NT-Pro-B Natriuret Pep 12 (0-900) pg/ml Total Protein 8.3 H (6.4-8.2) gm/dl Albumin 3.7 (3.4-5.0) gm/dl Lipase 91 (73-393) U/L Influenza Type A (PCR) Neg for Influ A (Neg) Influenza Type B (PCR) Neg for Influ B (Neg) 09/23/18 09/23/18 09/23/18 Range/Units 16:42 16:42 16:42 WBC (4.8-10.8) K/uL RBC (4.7-6.1) M/uL Hgb (14.0-18.0) g/dL Hct (42-52) % MCV (80-100) fL MCH (25-34) pg MCHC (32-36) g/dL RDW Std Deviation (36.4-46.3) fL RDW Coeff of Kristi (11.5-14.5) % Plt Count (130-400) K/uL MPV (7.4-10.4) fL Immature Gran % (Auto) % Neut % (Auto) % Lymph % (Auto) % [place] % (Auto) % Eos % (Auto) % Baso % (Auto) % Immature Gran # (Auto) (0.00-0.02) K/uL Neut # (Auto) (1.4-6.5) K/uL Lymph # (Auto) (1.2-3.4) K/uL [place] # (Auto) (0.11-0.59) K/uL Eos # (Auto) (0-0.5) K/uL Baso # (Auto) (0-0.2) K/uL VBG pH 7.35 L (7.36-7.41) VBG pCO2 52 H (38-50) mmHg VBG pO2 37 mmHg VBG HCO3 28 mmol/L VBG O2 Saturation 68.7 % VBG Base Excess 1.4 mEq/L Carboxyhemoglobin 0.0 % THgb Barometric Pressure 730.2 mm/Hg Sodium (136-145) mmol/L Potassium (3.5-5.1) mmol/L Chloride (98-107) mmol/L Carbon Dioxide (21-32) mmol/L Anion Gap (3-11) BUN (7-18) mg/dl Creatinine (0.6-1.4) mg/dl Est Cr Clr Drug Dosing Est GFR ( Amer) Est GFR (Non-Af Amer) BUN/Creatinine Ratio (10-20) Glucose (70-99) mg/dl Lactate 1.0 (0.4-2.0) mmol/L Calcium (8.5-10.1) mg/dl Total Bilirubin (0.2-1) mg/dl Direct Bilirubin (0-0.2) mg/dl AST (15-37) U/L ALT (12-78) U/L Alkaline Phosphatase (45-117) U/L Troponin I (0-0.045) ng/ml NT-Pro-B Natriuret Pep (0-900) pg/ml Total Protein (6.4-8.2) gm/dl Albumin (3.4-5.0) gm/dl Lipase (73-393) U/L Influenza Type A (PCR) (Neg) Influenza Type B (PCR) (Neg) Imaging Data Attestation: I personally reviewed and interpreted this imaging study as foll ows: Radiologist's Impression: Radiology results as stated below per my review and the radiologist's interpretation: XR chest 1V portable CLINICAL HISTORY: SOB, popping L anterior chest COMPARISON STUDY: Chest radiograph September 17, 2018. Chest CT September 18, 2018. FINDINGS: Lung volumes are normal. There is no pneumothorax or pleural effusion. Cardiomegaly is again noted. Mediastinal contours are stable. No evidence for pulmonary edema. Appearance of the chest is unchanged. IMPRESSION: No acute cardiopulmonary findings. No change in appearance of the chest. Electronically signed by: Jn Armendariz M.D. 09/23/2018 4:09 PM Dictated: 09/23/18 1606 Transcribed: 09/23/18 1606 RIGHT LOWER EXTREMITY VENOUS DOPPLER CLINICAL HISTORY: Shortness of breath. Chest pain. COMPARISON STUDY: No previous studies for comparison. TECHNIQUE: Sonography of the deep venous system of the right lower extremity was performed. Compression and augmentation were evaluated. FINDINGS: The right common femoral, superficial femoral and popliteal veins were compressible. Augmentation was normal. Flow was shown within the deep calf vessels. IMPRESSION: No evidence of deep venous thrombus within the right lower extremity. Electronically signed by: Jn Armendariz M.D. 09/23/2018 6:16 PM Dictated: 09/23/181815 Transcribed: 09/23/181815 CT ANGIOGRAPHY OF THE CHEST, PULMONARY EMBOLUS PROTOCOL CLINICAL HISTORY: Severe shortness of breath. Evaluate for pulmonary embolus. COMPARISON STUDY: Chest CT September 18, 2018. Chest radiograph performed earlier today. TECHNIQUE: Following IV administration of 120 mL of Optiray-320, helical axial images of the chest were obtained utilizing the pulmonary embolus protocol. Maximal intensity projections and sagittal and coronal reformats were viewed on an independent 3D workstation. IV contrast was administered without complication. Automated exposure control was utilized for the study. A dose lowering technique was utilized adhering to the principles of ALARA. CT DOSE: 680.21 mGy.cm FINDINGS: No pulmonary emboli are identified although the lobar, segmental and subsegmental pulmonary arteries are suboptimally assessed due to respiratory motion. There is no pneumothorax or pleural effusion. There is no consolidation to suggest pneumonia. Minimal secretions within the distal trachea are noted. Note is made of mildly displaced fractures of the anterior left sixth and seventh costochondral junctions. A small amount of adjacent fluid is noted. There is no pneumothorax. Fatty infiltration of the liver is noted. IMPRESSION: 1. Mildly displaced fractures of the anterior left sixth and seventh costochondral junctions with small amount of adjacent fluid. This accounts for the patient's pain. No pneumothorax. 2. No central pulmonary emboli identified. Remainder of the arteries suboptimally assessed due to respiratory motion. Electronically signed by: Jn Armendariz M.D. 09/23/2018 7:13 PM Dictated: 09/23/[id number] Transcribed: 09/23/181857 ECG Data Attestation: I personally reviewed and interpreted this ECG as follows: Indication: chest pain Rate (beats per minute): 105 Rhythm: sinus tachycardia Findings: + other (AZ and QRS are WNL, baseline wander and artifact ); no ST depression and no ST elevation Additional Comments: Repeat EKG done at 1655 Rate- 110, Rhythm- Sinus Tachycardia Findings: AZ, QRS WNL QTC- [address] elevation or ST depression Blood Pressure Blood Pressure Findings: Elevated blood pressure MDM Narrative 1607: I reviewed the patients EMR. This is the patients 3rd visit in the last 30 days for chest pain and shortness of breath related symptoms. The patient was last seen August 27, 2018. He had blood work and chest x-ray done during that visit. The chest X-ray was negative and troponin was also negative. The patient was discharged with zithromax and prednisone. The patient was next seen September 18, 2018. From that visit his white count was 13 and his troponin was negative. He also had a CTA chest which revealed no PE or pneumonia. The patient was evaluated in room A03, and a complete history and physical examination were performed. 1620: I performed a bedside ultrasound. The bedside ultrasound revealed very small trace pericardial effusion and no cardiac tamponade was noticed. 1841: Labs showed increased leukocytosis 12.3. While patient was at ultra sound he became techypnic and under extreme respiratory distress. He was 90% on 4L . Per the nursing staff, the patient became cyanotic. He was started on BPAP and will be taken for a CTA of the chest. 1905: The patient is coughing uncontrollably and gasping for air. These spells last 30 seconds to 2 minutes each. Patient notes his daughters boyfriend was admitted to the hospital for 5 days for unknown illness. He notes he has been feeling ill since having his last encounter with daughters boyfriend. 1940: Patient is tolerated BiPAP well. The patients CTA of chest revealed no PE or pneumonia, but did reveal two rib fractures. Patient will be admitted under the care of Paul Amador. Patient has verbalized agreement to the treatment plan. I spoke with Dr. Nika Miller regarding the case. He will admit the patient under his care for further treatment. The patient has verbalized agreement to the treatment plan. Impression & Plan Hypoxia, Closed rib fracture, Prolonged QT interval Critical Care Time I have personally spent greater than 59 minutes of critical care time in the direct management of this patient. This includes bedside care, interpretation of diagnostic studies, and testing, discussion with consultants, patient, and family members, and other required patient management activities. This [] minutes is in excess of all separately billable procedures. Critical Care Time: Yes Total Critical Care Time: 59 Discharge Plan Visit Data *Final* Discharge Date/Time: 09/23/18 21:09 Chief Complaint: Chest Pain Stated Complaint: CAN'T BREATH, CHEST PAIN ED Provider: Peter Morrison Discharge Problem: Hypoxia, Closed rib fracture, Prolonged QT interval Patient Disposition: Home - Self-Care Discharge Instructions Interventions: ED Discharge Assessment Last Done: 09/23/18 21:09 The scribe's documentation has been prepared under my direction and personally reviewed by me in its entirety. I confirm that the note above accurately reflects all work, treatment, procedures, and medical decision making performed by me.
[2018-09-24] MEDS: LEVALBUTEROL HCL 0.63 MG/3 ML NEB NEB PRN ×2 (00:42→05:12)
[2018-09-24] MEDS: IPRATROPIUM BROMIDE NEB SOLN 0.02% 2.5 ML VIAL INH SCH ×4 (01:24→19:48)
[2018-09-24] MEDS: LEVALBUTEROL 1.25MG/0.5ML NEB INH SCH ×4 (01:25→19:49)
[2018-09-24] MEDS ORDERED: XOPENEX/ATROVENT 1.25mg/0.5MG NEB COMBO NEB SCH (02:00)
[2018-09-24] MEDS: methylPREDNISolone 40 MG in SYRINGE 0 ML IV SCH ×3 (06:05→21:22)
[2018-09-24 08:20] LABS: BUN Creatinine Ratio 18.4 (10-20); Calcium 8.6 mg/dl (8.5-10.1); Est GFR (African American) 100.6; Est GFR (Non-African American) 86.8; Potassium 4.3 mmol/L (3.5-5.1)
--- NOTE | 2018-09-24 08:23 | XRay Report ---
XR sinus min 3V routine CLINICAL HISTORY: sinusitis COMPARISON STUDY: None. FINDINGS: There are 3 punctate metallic density seen within the soft tissues of the face. One of thes e is located within the right infraorbital subcutaneous soft tissues. No intraorbital metallic foreig n bodies identified. The paranasal sinuses and mastoid air cells appear clear. The orbital floors and lamina papyracea are intact. Mild S-shaped deviation of the nasal septum. No fluid levels within the paranasal sinuses. IMPRESSION: 1. The paranasal sinuses and mastoid air cells are clear. 2. There are 3 punctate metallic densities within the soft tissues of the face. Electronically signed by: Nas Drake M.D. 09/24/2018 8:22 AM
[2018-09-24] MEDS: TAMSULOSIN HCL 0.4 MG CAP PO SCH (09:07)
[2018-09-24] MEDS: LIDOCAINE 5% 1 PATCH TD SCH (09:07)
[2018-09-24] MEDS: ASPIRIN 81 MG ECTAB PO SCH (09:07)
[2018-09-24] MEDS: PANTOprazole 40 MG TAB PO SCH (09:08)
[2018-09-24] MEDS: DICLOFENAC SODIUM 75 MG TABCR PO SCH ×2 (09:08→21:20)
[2018-09-24] MEDS: CHOLECALCIFEROL 1,000 UNITS TAB PO SCH (09:08)
[2018-09-24] MEDS: guaiFENesin SUGAR FREE 200 MG/10 ML UDC PO SCH ×4 (09:08→21:19)
[2018-09-24] MEDS: SODIUM CHLORIDE 0.65% NA SOLN 45 ML (OCEAN) SCH ×4 (09:08→21:17)
--- NOTE | 2018-09-24 17:21 | Hospitalist Progress Note ---
Date of Service September 24, 2018 Assessment & Plan (1) Hypoxia: (2) Cough: Present on admission with cough and hypoxia with oxygen 88% Possible related to rib fractures CTA chest showed no PE and no infiltrates CXR showed no infiltrate Sinus xray showed paranasal sinuses and mastoid air cells are clear. Normal Lactate and procalcitonin Influenza negative Continue IV solumedrol, neb treatment and cough suppressant Continue oxygen supplement Already completed 2 round courses of abx Blood cx pending (3) Sleep apnea, obstructive: Continue CPAP. (4) Rib fractures: Rib fractures secondary to coughing. CTA chest showed mild displaced Fractures of left 6th and 7th ribs Continue Incentive spirometry. Cough suppressant (5) Prolonged QT interval: QTc 503 msec. Avoid QT-prolonging meds if possible. (6) Diarrhea: Patient reports frequent loose stools- at least 3 today. Has been on 2 recent courses of antibiotics. stool for C diff did not collected since diarrhea improved (7) Hematochezia: Possible due to hemorrhoids Last colonoscopy was 3 years ago- polyp, diverticulosis, internal hemorrhoids. Repeat colonoscopy recommended in 5 yrs; may need f/u colonoscopy sooner if hematochezia persists. Monitor CBC (8) GERD (gastroesophageal reflux disease): Continue PPI. (9) Benign prostatic hyperplasia: Continue tamsulosin. Stable (10) DVT prophylaxis: Not indicated- very low risk < 1.5%) of VTE per IMPROVE model. Ambulate. (11) Discharge planning issues: Anticipated discharge to home. Family Medicine follow-up with Dr. Jordan. Subjective Pt was seen and examined Sitting on the chair with no distress Pt said that breathing slightly improves He said that the breathing treatment helps He said that his coughing less now Denies any chest pain, palpitation, dizziness and fever Physical Exam Vital Signs (Past 24 Hours): Last Vital Signs Temp 36.7 C 09/24/18 16:00 Pulse 98 H 09/24/18 16:00 Resp 22 09/24/18 16:00 BP 145/77 H 09/24/18 16:00 Pulse Ox 93 09/24/18 16:00 Physical Exam: General- No acute distress Head- atraumatic Eyes- PERRL, EOMI, ENT- oropharynx clear Neck- supple, no JVD Lungs- +wheezing Heart- regular rhythm; no murmur Abdomen- normal bowel sounds, soft, nontender Extremities- no calf tenderness Neuro- alert, oriented x 3; PERRL, EOMI; no facial palsy; no dysarthria Skin- warm & dry
[2018-09-24] MEDS: SIMVASTATIN 20 MG TAB PO SCH (21:21)
[2018-09-25] MEDS: LEVALBUTEROL 1.25MG/0.5ML NEB INH SCH ×4 (02:04→19:38)
[2018-09-25] MEDS: IPRATROPIUM BROMIDE NEB SOLN 0.02% 2.5 ML VIAL INH SCH ×4 (02:04→19:38)
[2018-09-25] MEDS: methylPREDNISolone 40 MG in SYRINGE 0 ML IV SCH ×3 (05:22→21:59)
[2018-09-25] MEDS: LEVALBUTEROL HCL 0.63 MG/3 ML NEB NEB PRN (05:32)
[2018-09-25] MEDS: BENZONATATE 100 MG CAPSULE PO PRN ×2 (05:41→23:14)
[2018-09-25] MEDS: PANTOprazole 40 MG TAB PO SCH (07:58)
[2018-09-25] MEDS: guaiFENesin SUGAR FREE 200 MG/10 ML UDC PO SCH ×4 (07:58→21:58)
[2018-09-25] MEDS: CHOLECALCIFEROL 1,000 UNITS TAB PO SCH (07:58)
[2018-09-25] MEDS: DICLOFENAC SODIUM 75 MG TABCR PO SCH ×2 (07:58→21:59)
[2018-09-25] MEDS: TAMSULOSIN HCL 0.4 MG CAP PO SCH (07:59)
[2018-09-25] MEDS: ASPIRIN 81 MG ECTAB PO SCH (07:59)
[2018-09-25] MEDS: LIDOCAINE 5% 1 PATCH TD SCH (07:59)
[2018-09-25] MEDS: SODIUM CHLORIDE 0.65% NA SOLN 45 ML (OCEAN) SCH ×4 (08:00→21:58)
--- NOTE | 2018-09-25 14:59 | Hospitalist Progress Note ---
Date of Service September 25, 2018 Assessment & Plan (1) Hypoxia: O2 sats as low as 88% in ED, even after O2 administered. CTA chest negative for pulmonary embolism; no infiltrates or effusions noted. Hypoxia probably secondary to sinobronchitis with associated bronchospasm. Rx bronchospasm with IV methylprednisolone and nebs. No history of COPD or asthma. Consider PFT's once acute symptoms have resolved as an outpatient Continue oxygen supplement Will get a 2 step exercise tomorrow (2) Cough: Present on admission with cough and hypoxia with oxygen 88% Possible related to rib fractures CTA chest showed no PE and no infiltrates CXR showed no infiltrate Sinus xray showed paranasal sinuses and mastoid air cells are clear. Normal Lactate and procalcitonin Influenza negative Continue IV solumedrol, neb treatment and cough suppressant Continue oxygen supplement Already completed 2 round courses of abx Blood cx no growth (3) Sleep apnea, obstructive: Continue CPAP. (4) Rib fractures: Rib fractures secondary to coughing. CTA chest showed mild displaced Fractures of left 6th and 7th ribs Continue Incentive spirometry. Continue Cough suppressant (5) Prolonged QT interval: QTc 503 msec. Avoid QT-prolonging meds if possible. (6) Diarrhea: Patient reports frequent loose stools- at least 3 today. Has been on 2 recent courses of antibiotics. Stool for C diff did not collected since diarrhea improved resolved (7) Hematochezia: Possible due to hemorrhoids Last colonoscopy was 3 years ago- polyp, diverticulosis, internal hemorrhoids. Repeat colonoscopy recommended in 5 yrs; may need f/u colonoscopy sooner if he matochezia persists. Monitor CBC (8) GERD (gastroesophageal reflux disease): Continue PPI. (9) Benign prostatic hyperplasia: Continue tamsulosin. Stable (10) DVT prophylaxis: Not indicated- very low risk < 1.5%) of VTE per IMPROVE model. Ambulate. (11) Discharge planning issues: Anticipated discharge to home. Family Medicine follow-up with Dr. Jordan. Subjective Pt was seen and examined Lying in bed with no distress Pt said that last night he was coughing alot on the Bipap He said that this morning his breathing feels much better He said that pain is improved Denies any chest pain, palpitation, dizziness and SOB Physical Exam Vital Signs (Past 24 Hours): Last Vital Signs Temp 36.6 C 09/25/18 12:00 Pulse 88 09/25/18 13:51 Resp 18 09/25/18 13:51 BP 123/72 09/25/18 12:00 Pulse Ox 95 09/25/18 13:51 Physical Exam: General- No acute distress Head- atraumatic Eyes- PERRL, EOMI, ENT- oropharynx clear Neck- supple, no JVD Lungs- +faint wheezing Heart- regular rhythm; no murmur Abdomen- normal bowel sounds, soft, nontender Extremities- no calf tenderness Neuro- alert, oriented x 3; PERRL, EOMI; no facial palsy; no dysarthria Skin- warm & dry
[2018-09-25] MEDS: SIMVASTATIN 20 MG TAB PO SCH (21:59)
[2018-09-26] MEDS: IPRATROPIUM BROMIDE NEB SOLN 0.02% 2.5 ML VIAL INH SCH ×4 (02:02→22:58)
[2018-09-26] MEDS: LEVALBUTEROL 1.25MG/0.5ML NEB INH SCH ×4 (02:02→22:58)
[2018-09-26] MEDS: methylPREDNISolone 40 MG in SYRINGE 0 ML IV SCH (05:05)
[2018-09-26] MEDS: LIDOCAINE 5% 1 PATCH TD SCH (07:34)
[2018-09-26] MEDS: SODIUM CHLORIDE 0.65% NA SOLN 45 ML (OCEAN) SCH ×4 (07:34→20:02)
[2018-09-26] MEDS: ASPIRIN 81 MG ECTAB PO SCH (07:34)
[2018-09-26] MEDS: guaiFENesin SUGAR FREE 200 MG/10 ML UDC PO SCH ×4 (07:34→20:00)
[2018-09-26] MEDS: TAMSULOSIN HCL 0.4 MG CAP PO SCH (07:34)
[2018-09-26] MEDS: CHOLECALCIFEROL 1,000 UNITS TAB PO SCH (07:34)
[2018-09-26] MEDS: PANTOprazole 40 MG TAB PO SCH (07:34)
[2018-09-26] MEDS: DICLOFENAC SODIUM 75 MG TABCR PO SCH ×2 (07:35→20:00)
[2018-09-26] MEDS ORDERED: predniSONE 20 MG TAB PO STA (12:03)
--- NOTE | 2018-09-26 12:09 | Hospitalist Progress Note ---
Date of Service September 26, 2018 Assessment & Plan (1) Hypoxia: Hypoxia / Cough: - Presented on admission with cough and hypoxia with oxygen 88% -secondary to bronchospasm versus rib fractures; CTA chest showed mild displaced Fractures of left 6th and 7th ribs -Normal Lactate and procalcitonin, Influenza negative, Blood cultures are negative, had antibiotics in the past -on this hospital admission, the CTA chest on 09/23/18 with no evidence for pulmonary embolism or pleural effusions or pneumonia -transition from IV solumedrol to oral prednisone -continue nebulizer treatments but attempting to wean from q6 hours to q8 hours, Continue Incentive spirometry, Continue Cough suppressant -will need 2 step test and likely will need portable oxygen on discharge -send sputum for cultures if sputum is available Left sided Rib fractures: -CTA chest showed mild displaced Fractures of left 6th and 7th ribs -Rib fractures likely secondary to coughing. -Continue Incentive spirometry. -Continue Cough suppressant Prolonged QT interval: -QTc 503 msec on EKG on 09/23/18, Avoid QT-prolonging meds if possible. Diarrhea: -resolved Hematochezia: -Possible due to hemorrhoids; Last colonoscopy was 3 years ago- polyp, diverticulosis, internal hemorrhoids. Repeat colonoscopy recommended in 5 yrs or sooner if hematochezia persists -CBC is stable GERD (gastroesophageal reflux disease): -Continue PPI. Benign prostatic hyperplasia: -Continue tamsulosin. DVT prophylaxis: -Not indicated- very low risk < 1.5%) of VTE per IMPROVE model. Ambulate as tolerated Subjective Patient seen and examined at bedside. Patient on nasal cannula. reported that he walked earlier with therapy. feels that shortness of breath has improved. reports coughing up with sputum. reports chest pain with coughing fits are reduced in intensity. denies abdominal pain. denies vomiting Physical Exam Vital Signs (Past 24 Hours): Last Vital Signs Temp 36.4 C L 09/26/18 07:55 Pulse 60 09/26/18 08:00 Resp 20 09/26/18 07:55 BP 127/72 09/26/18 07:55 Pulse Ox 91 09/26/18 07:55 Constitutional: WD/WN, vitals as above Eyes: PERRL, conjunctivae normal, anicteric sclerae EOM intact bilaterally ENMT: external ear and nose normal, oropharynx normal Respiratory: normal respiratory effort mild expiratory wheezes Cardiovascular: Rate/Rhythm: regular rhythm and + bradycardic Gastrointestinal (Abdomen): normal bowel sounds, soft, nontender, no hepatosplenomegaly Musculoskeletal: Head/Neck/Chest: normocephalic and head atraumatic Neurologic: PERRL, EOMI, accommodation nl, no face palsy, no dysarthria Psychiatric: A+Ox3, euthymic affect
[2018-09-26] MEDS: BENZONATATE 100 MG CAPSULE PO PRN (18:10)
[2018-09-26] MEDS: SIMVASTATIN 20 MG TAB PO SCH (20:00)
[2018-09-27] MEDS: IPRATROPIUM BROMIDE NEB SOLN 0.02% 2.5 ML VIAL INH SCH (07:46)
[2018-09-27] MEDS: LEVALBUTEROL 1.25MG/0.5ML NEB INH SCH (07:46)
[2018-09-27] MEDS: TAMSULOSIN HCL 0.4 MG CAP PO SCH (08:26)
[2018-09-27] MEDS: ASPIRIN 81 MG ECTAB PO SCH ×2 (08:26→08:27)
[2018-09-27] MEDS: CHOLECALCIFEROL 1,000 UNITS TAB PO SCH (08:26)
[2018-09-27] MEDS: DICLOFENAC SODIUM 75 MG TABCR PO SCH (08:26)
[2018-09-27] MEDS: BENZONATATE 100 MG CAPSULE PO PRN (08:27)
[2018-09-27] MEDS: LIDOCAINE 5% 1 PATCH TD SCH (08:28)
[2018-09-27] MEDS: PANTOprazole 40 MG TAB PO SCH (08:28)
[2018-09-27] MEDS: SODIUM CHLORIDE 0.65% NA SOLN 45 ML (OCEAN) SCH (08:32)
[2018-09-27] MEDS ORDERED: predniSONE 20 MG TAB PO SCH (09:00)
[2018-09-27] MEDS: guaiFENesin SUGAR FREE 200 MG/10 ML UDC PO SCH (09:08)
[2018-09-27] MEDS ORDERED: IBUPROFEN 200 MG TAB PO PRN (12:30)
--- NOTE | 2018-09-27 12:49 | Hospitalist Progress Note ---
Date of Service September 27, 2018 Assessment & Plan (1) Hypoxia: Hypoxia / Cough: - Presented on admission with cough and hypoxia with oxygen 88% -secondary to bronchospasm versus rib fractures; CTA chest showed mild displaced Fractures of left 6th and 7th ribs -Normal Lactate and procalcitonin, Influenza negative, Blood cultures are negative, had antibiotics in the past -on this hospital admission, the CTA chest on 09/23/18 with no evidence for pulmonary embolism or pleural effusions or pneumonia -was transitioned from IV solumedrol to oral prednisone on 09/27/18, patient passed the 2 step test and no oxygen supplementation was deemed to be needed at rest or with ambulation -prednisone 40 mg daily for 3 more days for bronchitis Tessalon Perles 200 mg three time a day as needed for 5 more days for cough -Levalbuterol (Xopenex) 1.25mg/0.5 ml nebulizer q6 hour prn for shortness of breath or wheezing for bronchitis -sputum for cultures sent on 09/27/18 and can be followed by primary care doctor Left sided Rib fractures: -CTA chest showed mild displaced Fractures of left 6th and 7th ribs -Rib fractures likely secondary to coughing. -Continue Cough suppressant of Tessalon Perles -Ibuprofen 200 mg q6 hours for mild pain (avoid if see blood in stool) -[facility] was check and patient does not have any active controlled prescriptions prior to this hospital stay. Patient may take tramadol 50 mg every 6 hours as needed for moderate pain (16 tablets prescribed) Prolonged QT on EKG -QTc 503 msec on EKG on 09/23/18, Avoid QT-prolonging meds if possible. Diarrhea: -resolved Hematochezia as documented by previous hospital physician on this admission -Possible due to hemorrhoids; Last colonoscopy was 3 years ago- polyp, diverticulosis, internal hemorrhoids. Repeat colonoscopy recommended in 5 yrs or sooner if hematochezia persists -CBC is stable, patient instructed to avoid ibuprofen at home if he sees blood in the stool GERD (gastroesophageal reflux disease): -Continue PPI. Benign prostatic hyperplasia: -Continue tamsulosin. DVT prophylaxis: Ambulate as tolerated Discharge Diagnosis Hypoxia (resolved), Bronchitis, Closed fracture of multiple ribs of left side (initial encounter), Hematochezia (resolved), prolonged QT on EKG Discharge Instructions Levalbuterol (Xopenex) 1.25mg/0.5 ml nebulizer q6 hour prn for shortness of breath or wheezing prednisone 40 mg daily for 3 more days for bronchitis Tessalon Perles 200 mg three time a day as needed for 5 more days for cough Ibuprofen 200 mg q6 hours for mild pain (avoid if see blood in stool) [place] PDMP was check and patient does not have any active controlled prescriptions prior to this hospital stay. Patient may take tramadol 50 mg every 6 hours as needed for moderate pain (16 tablets prescribed) 10/02/2018 12:00 PM Provider [facility] Pulmonary Function Lab, [facility] 10/02/2018 3:20 PM Provider Salvador Jordan MD Department Family [facility] 12/11/2018 10:00 AM Provider Naima Sauceda DO Department Sleep Disorders, [facility] Subjective Patient passed the 2 step test and did not have to be on oxygen supplementation. patient breathing comfortably on room air. denies chest pain. denies shortness of breath. denies lightheadedness. denies blood from orifices Physical Exam Vital Signs (Past 24 Hours): Last Vital Signs Temp 36.6 C 09/27/18 06:54 Pulse 81 09/27/18 07:49 Resp 16 09/27/18 07:49 BP 123/83 09/27/18 06:54 Pulse Ox 96 09/27/18 07:49 Constitutional: WD/WN, vitals as above Eyes: PERRL, conjunctivae normal, anicteric sclerae EOM intact bilaterally ENMT: external ear and nose normal, oropharynx normal Respiratory: normal respiratory effort Cardiovascular: Rate/Rhythm: regular rate and regular rhythm Gastrointestinal (Abdomen): normal bowel sounds, soft, nontender, no hepatosplenomegaly Musculoskeletal: Head/Neck/Chest: normocephalic and head atraumatic Neurologic: PERRL, EOMI, accommodation nl, no face palsy, no dysarthria Psychiatric: A+Ox3, euthymic affect
--- NOTE | 2018-09-27 12:57 | Discharge Summary ---
Date of Service September 27, 2018 Admission HPI Per Admitting Provider 58-year-old male followed by Dr. Jordan. He enjoys relatively good health. History of sleep apnea, no other diagnosed pulmonary disease. About 3 weeks prior to admission he developed a cough. His daughter's boyfriend had similar symptoms and had to be hospitalized for several days. Cough became productive of yellow-green sputum. He was seen in the ED on 08/27/18. Chest x-ray did not show any infiltrates. He was thought to have bronchitis and was prescribed azithromycin and prednisone. Continue to have intermittent coughing. Temperature at home was as high as 102. Had at least one episode of nausea and vomiting. Developed left anterior chest wall pain after feeling a pop in his ribs after a coughing spell. Noted sinus congestion and postnasal drainage. Seen in clinic on 09/13/18 and prescribed amoxicillin/clavulanic acid, methylprednisolone taper, and nebulizer treatments with albuterol and ipratropium. He completed his course of methylprednisolone several days ago and his amoxicillin/clavulanic acid yesterday. Sinus symptoms have improved. Still experiencing wheezing, shortness of breath, and severe paroxysms of coughing. Nebulizer treatments offered temporary relief of wheezing and dyspnea. Using [id number] cough medications PRN. Cough still productive of thick green sputum. Ongoing severe left anterior chest wall pain; no anginal symptoms. Using diclofenac and ibuprofen chest wall pain without much benefit. Having frequent loose stools; has had intermittent rectal bleeding which he attributes to hemorrhoids. Came to the ED for evaluation. Oxygen saturations as low as 88%. BiPAP utilized for ventilatory support. Admission Exam Per Admitting Provider Constitutional: WD/WN, vitals as above no acute distress (appears very uncomfortable when coughing) Eyes: PERRL, conjunctivae normal, anicteric sclerae ENMT: external ear and nose normal, oropharynx normal Neck: trachea midline, no thyromegaly Respiratory: no respiratory distress Auscultation: + wheezes (diffuse, moderate) Cardiovascular: Rate/Rhythm: regular rate Heart Sounds: no gallop, no murmur and no cardiac rub Vessels: no JVD Extremities: normal capillary refill and + edema (trace pretibial); no calf tenderness Chest (Breasts): Additional Comments: left anterior chest wall tenderness Gastrointestinal (Abdomen): normal bowel sounds, soft, nontender, no hepatosplenomegaly Musculoskeletal: Head/Neck/Chest: neck supple Extremities: strength 5/5 throughout; no cyanosis and no clubbing Skin: no rashes, warm and dry Neurologic: PERRL, EOMI no facial palsy no dysarthria or aphasia patellar DTR's 1/2 bilat Psychiatric: Orientation: alert and oriented x 3 Affect: euthymic affect Lymphatic: no cervical lymphadenopathy Principal Diagnosis Hypoxia (resolved), Bronchitis, Closed fracture of multiple ribs of left side (initial encounter), Hematochezia (resolved), prolonged QT on EKG Discharge Exam Constitutional WD/WN, vitals as above Eyes PERRL, conjunctivae normal, anicteric sclerae EOM intact bilaterally ENMT external ear and nose normal, oropharynx normal Respiratory normal respiratory effort Cardiovascular Rate/Rhythm: regular rate and regular rhythm Gastrointestinal (Abdomen) normal bowel sounds, soft, nontender, no hepatosplenomegaly Musculoskeletal Head/Neck/Chest: normocephalic and head atraumatic Neurologic PERRL, EOMI, accommodation nl, no face palsy, no dysarthria Psychiatric A+Ox3, euthymic affect Discharge Data Allergies Allergy/AdvReac Type Severity Reaction Status Date / Time No Known Allergies Allergy Unknown Verified 09/18/18 00:27 Consultations 09/23/18 19:36 ED Decision to Admit Stat Ordered Studies 09/23/18 16:14 US venous doppler LE RT Stat 09/23/18 18:41 CT angio chest PE protocol Stat Hospital Course (1) Hypoxia: Hypoxia / Cough: - Presented on admission with cough and hypoxia with oxygen 88% -secondary to bronchospasm versus rib fractures; CTA chest showed mild displaced Fractures of left 6th and 7th ribs -Normal Lactate and procalcitonin, Influenza negative, Blood cultures are negative, had antibiotics in the past -on this hospital admission, the CTA chest on 09/23/18 with no evidence for pulmonary embolism or pleural effusions or pneumonia -was transitioned from IV solumedrol to oral prednisone on 09/27/18, patient passed the 2 step test and no oxygen supplementation was deemed to be needed at rest or with ambulation -prednisone 40 mg daily for 3 more days for bronchitis Tessalon Perles 200 mg three time a day as needed for 5 more days for cough -Levalbuterol (Xopenex) 1.25mg/0.5 ml nebulizer q6 hour prn for shortness of breath or wheezing for bronchitis -sputum for cultures sent on 09/27/18 and can be followed by primary care doctor Left sided Rib fractures: -CTA chest showed mild displaced Fractures of left 6th and 7th ribs -Rib fractures likely secondary to coughing. -Continue Cough suppressant of Tessalon Perles -Ibuprofen 200 mg q6 hours for mild pain (avoid if see blood in stool) [facility] and patient does not have any active controlled prescriptions prior to this hospital stay. Patient may take tramadol 50 mg every 6 hours as needed for moderate pain (16 tablets prescribed) Prolonged QT on EKG -QTc 503 msec on EKG on 09/23/18, Avoid QT-prolonging meds if possible. Diarrhea: -resolved Hematochezia as documented by previous hospital physician on this admission -Possible due to hemorrhoids; Last colonoscopy was 3 years ago- polyp, diverticulosis, internal hemorrhoids. Repeat colonoscopy recommended in 5 yrs or sooner if hematochezia persists -CBC is stable, patient instructed to avoid ibuprofen at home if he sees blood in the stool GERD (gastroesophageal reflux disease): -Continue PPI. Benign prostatic hyperplasia: -Continue tamsulosin. DVT prophylaxis: Ambulate as tolerated Discharge Diagnosis Hypoxia (resolved), Bronchitis, Closed fracture of multiple ribs of left side (initial encounter), Hematochezia (resolved), prolonged QT on EKG Discharge Instructions Levalbuterol (Xopenex) 1.25mg/0.5 ml nebulizer q6 hour prn for shortness of breath or wheezing prednisone 40 mg daily for 3 more days for bronchitis Tessalon Perles 200 mg three time a day as needed for 5 more days for cough Ibuprofen 200 mg q6 hours for mild pain (avoid if see blood in stool) [facility] and patient does not have any active controlled prescriptions prior to this hospital stay. Patient may take tramadol 50 mg every 6 hours as needed for moderate pain (16 tablets prescribed) 10/02/2018 12:00 PM Provider [facility] [place] Department Pulmonary Function Lab, [facility] 10/02/2018 3:20 PM Provider Salvador Jordan MD Department [facility] 12/11/2018 10:00 AM Provider Naima Sauceda DO Department Sleep Disorders, [facility] Total Time Total Time Spent Total Time Spent (In Minutes): 40 minutes Total Time Includes: Examination of the Patient, Discharge Planning and Medication Reconciliation Discharge Plan Discharge Items Patient Disposition: Home - Self-Care Reason For Visit: CHEST PAIN HYPOXIA Discharge Diagnosis: Hypoxia (resolved), Bronchitis, Closed fracture of multiple ribs of left side (initial encounter), Hematochezia (resolved), prolonged QT on EKG Condition: Good Discharge Goals: Improve disease control Activity: Resume your previous activity Non-emergency contact: Primary Care Provider Call non-emergency contact if: you have any medication questions Follow-up/Referrals: Salvador Jordan [Primary Care Provider] - Diet: Regular Addtl Provider Instructions: Levalbuterol (Xopenex) 1.25mg/0.5 ml nebulizer q6 hour prn for shortness of breath or wheezing prednisone 40 mg daily for 3 more days for bronchitis Tessalon Perles 200 mg three time a day as needed for 5 more days for cough Ibuprofen 200 mg q6 hours for mild pain (avoid if see blood in stool) [place] PDMP was check and patient does not have any active controlled prescriptions prior to this hospital stay. Patient may take tramadol 50 mg every 6 hours as needed for moderate pain (16 tablets prescribed) 10/02/2018 12:00 PM Provider [facility] Pulmonary Function Lab, [facility] 10/02/2018 3:20 PM Provider Salvador Jordan MD Department [facility] 12/11/2018 10:00 AM Provider Naima Sauceda DO Department Sleep Disorders, [facility] Prescriptions: New levalbuterol HCl 1.25 mg/0.5 mL Solution For Nebulization 1.25 mg inhalation Q6H PRN (Reason: shortness of breath or wheezing) 30 Days Qty: 60 RF: 0 benzonatate [Tessalon Perles] 100 mg Capsule 200 mg PO TID PRN (Reason: cough) 10 Days Qty: 30 RF: 0 prednisone 20 mg Tablet 40 mg PO DAILY 3 Days Qty: 6 RF: 0 ibuprofen 200 mg Tablet 200 mg PO Q6H PRN (Reason: pain) 5 Days Qty: 20 RF: 0 tramadol 50 mg Tablet 50 mg PO Q6H PRN (Reason: pain, moderate) 4 Days Qty: 16 RF: 0 Continued simvastatin 20 mg tablet 20 mg PO HS RF: 0 omeprazole 20 mg capsule,delayed release(DR/EC) 20 mg PO DAILY RF: 0 diclofenac sodium 75 mg tablet,delayed release (DR/EC) 75 mg PO BID RF: 0 albuterol sulfate 90 mcg/actuation HFA aerosol inhaler 2 puff Inhalation Q4 PRN (Reason: Shortness Of Breath) RF: 0 Mucinex DM 30-600 mg Tablet Extended Release 12 Hr 2 tab PO Q12H PRN (Reason: Congestion) RF: 0 cholecalciferol (vitamin D3) [Vitamin D3] 2,000 unit Tablet 2,000 unit PO DAILY RF: 0 aspirin 81 mg Tablet,Delayed Release (Dr/Ec) 81 mg PO DAILY RF: 0 tamsulosin 0.4 mg capsule 0.4 mg PO DAILY RF: 0 Discontinued benzonatate 200 mg capsule 200 mg PO TID Qty: 30 RF: 0 ipratropium-albuterol 0.5 mg-3 mg(2.5 mg base)/3 mL solution for nebulization 3 ml Inhalation QID PRN (Reason: cough, wheeze) RF: 0 Stand-Alone Forms: Call Back Authorization, [facility] Discharge Orders: Discharge Order (Routine); Ordered 09/27/18 Ordered By: Ananth Rachel Admission Data Admit Date/Time: 09/23/18 20:38 Attending Provider: Ananth Rachel Admit Provider: Sav Maher Primary Care Provider: Salvador Jordan Other Providers: Sav Maher Service: Telemetry Medical Other Pending Studies at Discharge: Yes Studies:: sputum cultures pending
== END 2018-09-27 13:25 | disposition home or self-care (01) | DRG 202 ==
LOC: ED 15:39 → 2W 20:38 → SUATTDRO 20:38 → 2W 21:09